=== PATIENT | male | born 1940 | race Caucasian/White ===

== ENCOUNTER → 2020-05-28 | Outpatient (CLI) | payer BC ==
[~2020-05-28] MED LIST: ACET-907 PO; ADME100I SC; EQL50CAP4 PO; GABA-843 PO; INSULANT SC; VITA50005 PO
== END ==
LOC: M LABSMTC 09:10
PROVIDERS: ATTEND Anesthesiology
DX: Z01.812 Encounter for preprocedural laboratory examination (principal); Z20.828 Contact with and (suspected) exposure to other viral communicable diseases
CPT/HCPCS: C9803; U0003

== ENCOUNTER 2020-06-02 10:12 | Day surgery (SDC) | payer MEDICARE, BC ==
[~2020-06-02] VITALS: Ht 172.7 cm; Wt 106.1 kg
[~2020-06-02 10:12] MED LIST changes: +NS 1,000 ML IV ONE
[2020-06-02] MEDS ORDERED: propofoL 500 MG/50 ML VIAL As Ordered ONE (12:18)
[2020-06-02] MEDS ORDERED: LIDOCAINE 2% 100MG/5ML SDV (FOR ANES.) As Ordered ONE (12:18)
[2020-06-02] MEDS ORDERED: fentaNYL 100 MCG/2 ML INJECTION (J3010) As Ordered ONE (12:18)
[2020-06-02] MEDS ORDERED: ePHEDrine SULFATE 25 MG/5 ML(5MG/ML) SYRINGE As Ordered ONE (12:25)
[2020-06-02] MEDS ORDERED: propofoL 200 MG/20 ML VIAL As Ordered ONE (13:19)
--- NOTE | 2020-06-02 13:42 | ROOR ---
Patient Name: Anthony Alvarenga Procedure Date: 06/02/2020 12:12 PM Date of : 1940 Age: 79 Room: [facility] Gender: Male Note Status: Finalized Procedure: Upper GI endoscopy Indications: Acute post hemorrhagic anemia, Anemia Providers: Vladimir Bansal MD Referring MD: GALINDO REHMAN MD Requesting Provider: Medicines: Monitored Anesthesia Care Complications: No immediate complications. Procedure: Pre-Anesthesia Assessment: - Prior to the procedure, a History and Physical was performed, and patient medications and allergies were reviewed. The patient is competent. The risks and benefits of the procedure and the sedation options and risks were discussed with the patient. All questions were answered and informed consent was obtained. Patient identification and proposed procedure were verified by the physician, the nurse and the anesthesiologist in the procedure room. Mental Status Examination: alert and oriented. Airway Examination: normal oropharyngeal airway and neck mobility. Respiratory Examination: clear to auscultation. CV Examination: normal. Prophylactic Antibiotics: The patient does not require prophylactic antibiotics. Prior Anticoagulants: The patient has taken no previous anticoagulant or antiplatelet agents. ASA Grade Assessment: II - A patient with mild systemic disease. After reviewing the risks and benefits, the patient was deemed in satisfactory condition to undergo the procedure. The anesthesia plan was to use monitored anesthesia care (MAC). Immediately prior to administration of medications, the patient was re-assessed for adequacy to receive sedatives. The heart rate, respiratory rate, oxygen saturations, blood pressure, adequacy of pulmonary ventilation, and response to care were monitored throughout the procedure. The physical status of the patient was re-assessed after the procedure. The Endoscope was introduced through the mouth, and advanced to the afferent and efferent jejunal loops. The upper GI endoscopy was accomplished without difficulty. The patient tolerated the procedure well. Findings: LA Grade B (one or more mucosal breaks greater than 5 mm, not extending between the tops of two mucosal folds) esophagitis with no bleeding was found in the distal esophagus. Biopsies were taken with a cold forceps for histology. Verification of patient identification for the specimen was done by the physician and nurse using the patient's name, date and medical record number. Estimated blood loss was minimal. A medium-sized hiatal hernia was present. Evidence of a Emily-en-Y gastrojejunostomy was found. The gastrojejunal anastomosis was characterized by healthy appearing mucosa and congestion. This was traversed. The jejunojejunal anastomosis was characterized by healthy appearing mucosa. The [id number]-[id number] limb was not examined as it could not be found. One 10 mm angioectasia with stigmata of recent bleeding was found in the gastric body. For hemostasis, one hemostatic clip was successfully placed. There was no bleeding at the end of the procedure. The examined jejunum was normal. Impression: - LA Grade B reflux esophagitis. Rule out Pruitt's esophagus. Biopsied. - Medium-sized hiatal hernia. - Emily-en-Y gastrojejunostomy with gastrojejunal anastomosis characterized by healthy appearing mucosa and congestion. - One recently bleeding angioectasia in the stomach. Clip was placed. - Normal examined jejunum. Recommendation: - Patient has a contact number available for emergencies. The signs and symptoms of potential delayed complications were discussed with the patient. Return to normal activities tomorrow. Written discharge instructions were provided to the patient. - Post gastric bypass diet (small frequent meals and avoid fatty/ fried foods). - Follow an antireflux regimen. - Continue present medications. - Await pathology results. - Repeat upper endoscopy in 1 year for surveillance based on pathology results. - Telephone GI clinic for pathology results in 2 weeks. - Return to primary care physician. Vladimir Bansal MD Vladimir Bansal MD 06/02/2020 1:42:34 PM Electronically signed by Vladimir Bansal MD Number of Addenda: 0 Note Initiated On: 06/02/2020 12:12 PM Estimated Blood Loss: Estimated blood loss: none.
[2020-06-02 13:50] VITALS: BP 145/71
--- NOTE | 2020-06-02 14:19 | ROOR ---
Patient Name: Anthony Alvarenga Procedure Date: 06/02/2020 12:12 PM Date of : 1940 Age: 79 Room: [facility] Gender: Male Note Status: Finalized Procedure: Colonoscopy Indications: Change in bowel habits Providers: Vladimir Bansal MD Referring MD: GALINDO REHMAN MD Requesting Provider: Medicines: Monitored Anesthesia Care Complications: No immediate complications. Procedure: Pre-Anesthesia Assessment: - Prior to the procedure, a History and Physical was performed, and patient medications and allergies were reviewed. The patient is competent. The risks and benefits of the procedure and the sedation options and risks were discussed with the patient. All questions were answered and informed consent was obtained. Patient identification and proposed procedure were verified by the physician, the nurse and the anesthesiologist in the procedure room. Mental Status Examination: alert and oriented. Airway Examination: normal oropharyngeal airway and neck mobility. Respiratory Examination: clear to auscultation. CV Examination: normal. Prophylactic Antibiotics: The patient does not require prophylactic antibiotics. Prior Anticoagulants: The patient has taken no previous anticoagulant or antiplatelet agents. ASA Grade Assessment: II - A patient with mild systemic disease. After reviewing the risks and benefits, the patient was deemed in satisfactory condition to undergo the procedure. The anesthesia plan was to use monitored anesthesia care (MAC). Immediately prior to administration of medications, the patient was re-assessed for adequacy to receive sedatives. The heart rate, respiratory rate, oxygen saturations, blood pressure, adequacy of pulmonary ventilation, and response to care were monitored throughout the procedure. The physical status of the patient was re-assessed after the procedure. The Colonoscope was introduced through the anus and advanced to the terminal ileum, with identification of the appendiceal orifice and IC valve. The colonoscopy was performed without difficulty. The patient tolerated the procedure well. The quality of the bowel preparation was good. The terminal ileum, ileocecal valve, appendiceal orifice, and rectum were photographed. Scope insertion time was 5 minutes. Scope withdrawal time was 15 minutes. The total duration of the procedure was 20 minutes. Findings: The perianal and digital rectal examinations were normal. The terminal ileum appeared normal. Five sessile polyps were found in the transverse colon and ascending colon. The polyps were 4 to 14 mm in size. These polyps were removed with a hot snare. Resection and retrieval were complete. Verification of patient identification for the specimen was done by the physician and nurse using the patient's name, date and medical record number. Estimated blood loss was minimal. Multiple small and large-mouthed diverticula were found from sigmoid to hepatic flexure. There was no evidence of diverticular bleeding. There was a large lipoma, 30 mm in diameter, in the transverse colon. Biopsies were taken with a cold forceps for histology. A 20 mm polyp was found in the transverse colon. The polyp was sessile. The polyp was removed with a cold biopsy forceps. The polyp was removed with a hot snare. The polyp was removed with a piecemeal technique using a hot snare. Resection and retrieval were complete. To close a defect after polypectomy, two hemostatic clips were successfully placed. There was no bleeding at the end of the procedure. Non-bleeding external and internal hemorrhoids were found during retroflexion. The hemorrhoids were large. Impression: - The examined portion of the ileum was normal. - Five 4 to 14 mm polyps in the transverse colon and in the ascending colon, removed with a hot snare. Resected and retrieved. - Severe diverticulosis from sigmoid to hepatic flexure. There was no evidence of diverticular bleeding. 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 Biopsied. - One 20 mm polyp in the transverse colon, removed with a cold biopsy forceps, removed with a hot snare and removed piecemeal using a hot snare. Resected and retrieved. Clips were placed. - Non-bleeding external and internal hemorrhoids. Recommendation: - Patient has a contact number available for emergencies. The signs and symptoms of potential delayed complications were discussed with the patient. Return to normal activities tomorrow. Written discharge instructions were provided to the patient. - High fiber diet. - Continue present medications. - Await pathology results. - Repeat colonoscopy in 1 year for surveillance based on pathology results. - Telephone GI clinic for pathology results in 2 weeks. - Return to primary care physician. Vladimir Bansal MD Vladimir Bansal MD 06/02/2020 2:18:42 PM Electronically signed by Vladimir Bansal MD Number of Addenda: 0 Note Initiated On: 06/02/2020 12:12 PM Estimated Blood Loss: Estimated blood loss was minimal.
== END 2020-06-02 14:10 | disposition home or self-care (01) ==
LOC: M OPP 10:12
PROVIDERS: ATTEND Internal Medicine Gastroenterology
DX: K63.5 Polyp of colon (principal); D17.5 Benign lipomatous neoplasm of intra-abdominal organs; K57.30 Diverticulosis of large intestine without perforation or abscess without bleeding; K64.8 Other hemorrhoids; R19.4 Change in bowel habit; K21.00 Gastro-esophageal reflux disease with esophagitis, without bleeding; K44.9 Diaphragmatic hernia without obstruction or gangrene; K31.811 Angiodysplasia of stomach and duodenum with bleeding; Z98.0 Intestinal bypass and anastomosis status; D62 Acute posthemorrhagic anemia; Z79.4 Long term (current) use of insulin; Z79.899 Other long term (current) drug therapy; Z98.84 Bariatric surgery status
CPT/HCPCS: 43239; 43255; 45380; 45385; 88305; J3010

== ENCOUNTER → 2020-07-06 | Outpatient (CLI) | payer BC, MEDICARE ==
[~2020-07-06] MED LIST changes: -NS 1,000 ML IV ONE
[2020-07-06 10:28] LABS: BASO % 0.2 % (0.0-1.0); EOS # 0.1 10^3/uL (0.0-0.5); EOS % 0.7 % (0.0-3.0); HEMOGLOBIN 12.6 g/dl (13.5-17.5); LYMPH # 4.8 10^3/uL (1.5-5.0); LYMPH % 51.8 % (24.0-44.0); MEAN CORPUSCULAR HEMOGLOBIN 29.2 pg (27.0-33.0); MEAN CORPUSCULAR HGB CONC 31.5 g/dl (32.0-36.5); MEAN CORPUSCULAR VOLUME 92.8 fl (80.0-96.0); MONO # 0.4 10^3/uL (0.0-0.8); MONO % 4.4 % (0.0-5.0); NEUTROPHILS % 42.6 % (36.0-66.0); PLATELET COUNT, AUTOMATED 197 10^3/uL (150-450); RED BLOOD COUNT 4.31 10^6/uL (4.30-6.10); WHITE BLOOD COUNT 9.4 10^3/uL (4.0-10.0)
[2020-07-06 11:06] LABS: FERRITIN 30 NG/ML (26-388); IRON (FE) 71 UG/DL (65-175); PERCENT SATURATION 20.4 % (19.7-50.0); TOTAL IRON BINDING CAPACITY 348 UG/DL (250-450)
[2020-07-06 11:13] LABS: VITAMIN B12 LEVEL 426 PG/ML
[2020-07-06 12:46] LABS: H PYLORI QUALITATIVE IgG NEGATIVE (NEGATIVE)
[2020-07-07 13:16] LABS: FOLATE 13.3 NG/ML
== END ==
LOC: M LAB 09:14
PROVIDERS: ATTEND Internal Medicine Gastroenterology
DX: R10.30 Lower abdominal pain, unspecified (principal)

== ENCOUNTER → 2020-07-14 | Outpatient (REF) | payer MEDICARE, BC | LOC: M LAB REF 09:21 | PROVIDERS: ATTEND Internal Medicine Gastroenterology | DX: R10.30 Lower abdominal pain, unspecified (principal) ==

== ENCOUNTER → 2021-03-01 | Outpatient (CLI) | payer MEDICARE, BC ==
[~2021-03-01] MED LIST changes: +ERGO500029 PO; +GABA-282 PO; -GABA-843 PO; -VITA50005 PO
--- NOTE | 2021-03-01 10:05 | REP ---
INDICATION: LOWER ABD PAIN. COMPARISON: None. TECHNIQUE: Real-time sonographic evaluation of right upper quadrant performed. FINDINGS: The gallbladder demonstrates no evidence of intraluminal sludge or calculi, wall thickening or pericholecystic fluid. There is no intrahepatic or extrahepatic biliary dilatation, common bile duct measures 5 mm in maximum diameter. Liver demonstrates increased echotexture diffusely compatible with diffuse fibrofatty infiltration. No focal mass is seen. Pancreas is not seen due to overlying bowel gas. The right kidney demonstrates no hydronephrosis, with a normal size of 10.9 cm in length. No free fluid is seen. IMPRESSION: Diffuse fibrofatty infiltration of the liver with no sonographic evidence of liver mass. <Electronically signed by Yfn [place] > 03/01/21 1001
== END ==
LOC: M RAD 09:22
PROVIDERS: ATTEND Internal Medicine Gastroenterology
DX: R10.30 Lower abdominal pain, unspecified (principal); K76.0 Fatty (change of) liver, not elsewhere classified

== ENCOUNTER → 2021-03-30 | Outpatient (CLI) | payer MEDICARE, BC ==
[~2021-03-30] MED LIST changes: +ATOR1TAB21 PO; +COLA50CA5 PO; +LISI-898; +METF-838 PO; +OMEP-221 PO
== END ==
LOC: M LABSMTC 10:35
PROVIDERS: ATTEND Anesthesiology
DX: Z01.812 Encounter for preprocedural laboratory examination (principal)